=== PATIENT | female | born 1990 | race Caucasian/White ===

== ENCOUNTER 2017-01-08 14:47 | Emergency (ER) | payer OTHER ==
--- NOTE | 2017-01-08 16:01 | ED ---
General Adult HPI - General Chief complaint: Dental/Oral Stated complaint: Mouth Infection Time Seen by Provider: 01/08/17 15:32 Source: patient, RN notes reviewed Mode of arrival: ambulatory Limitations: no limitations - History of Present Illness Initial comments: This is a 26-year-old female presents with left-sided dental pain 3 days. Patient states she has an appointment with an oral surgeon for her wisdom teeth on 01/15/2017 but is in a lot of pain. Patient states she has been taking Motrin with very little relief. Patient states she noticed some left-sided facial swelling yesterday but this has gone down with Motrin. Patient denies any purulent drainage or fever/chills, nausea/vomiting or diarrhea. Patient denies any chance of being stating she is 3 weeks and is not breast feeding. Patient denies any recent shortness breath, chest pain, abdominal pain, nausea/vomiting/diarrhea, back pain, numbness, tingling, hematuria, headache, or visual changes, or any other complaints. - Related Data Previous Rx's Medication Instructions Recorded Ibuprofen [Motrin] 600 mg PO Q6HR PRN #30 tab 12/15/16 Clindamycin [Cleocin] 150 mg PO Q6H 7 Days 01/08/17 HYDROcodone/APAP 5-325MG [[place] 1 tab PO Q6HR #12 tab 01/08/17 5-325] Allergies Allergy/AdvReac Type Severity Reaction Status Date / Time Penicillins Allergy Rash/Hives Verified 01/08/17 16:04 codeine AdvReac Nausea & Verified 01/08/17 16:04 [From Tylenol-Codeine #3] Vomiting Review of Systems ROS Statement: Those systems with pertinent positive or pertinent negative responses have been documented in the HPI. ROS Other: All systems not noted in ROS Statement are negative. Past Medical History Past Medical History: No Reported History, Pneumonia History of Any Multi-Drug Resistant Organisms: None Reported Past Surgical History: Adenoidectomy, Section, Tonsillectomy Additional Past Surgical History / Comment(s): cleft foot Past Anesthesia/Blood Transfusion Reactions: No Reported Reaction Past Psychological History: ADD/ADHD, Anxiety Smoking Status: Current every day smoker Past Alcohol Use History: None Reported Additional Past Alcohol Use History / Comment(s): smoker 13 years 1/2ppd Past Drug Use History: None Reported - Past Family History Mother Family Medical History: No Reported History General Exam - General Exam Comments Initial Comments: General: The patient is awake and alert, in no distress, and does not appear acutely ill. Eye: Pupils are equal, round and reactive to light, extra-ocular movements are intact. No nystagmus. There is normal conjunctiva bilaterally. No signs of icterus. Ears: TMs pink and pearly with intact cone of light bilaterally. Normal external ear canals Mouth and throat: Patient with tenderness to left-sided tooth #17. No purulent drainage or erythema. There are moist mucous membranes and no oral lesions. No external facial swelling. Neck: The neck is supple, there is no tenderness or JVD. Cardiovascular: There is a regular rate and rhythm. No murmur, rub or gallop is appreciated. Respiratory: Lungs are clear to auscultation, respirations are non-labored, breath sounds are equal. No wheezes, stridor, rales, or rhonchi. Musculoskeletal: Normal ROM, no tenderness. Strength 5/5. Sensation intact. Radial pulses equal bilaterally 2+. Neurological: A&O x 3. CN II-XII intact, There are no obvious motor or sensory deficits. Coordination appears grossly intact. Speech is normal. Skin: Skin is warm and dry and no rashes or lesions are noted. Psychiatric: Cooperative, appropriate mood & affect, normal judgment. Limitations: no limitations Course Vital Signs 01/08/17 01/08/17 15:17 16:02 Temperature 98.0 F 97.9 F Pulse Rate 97 90 Respiratory 20 14 Rate Blood Pressure 142/92 131/77 O2 Sat by Pulse 98 98 Oximetry Medical Decision Making - Medical Decision Making Physical exam 6-year-old female presents left-sided dental pain 3 days. On physical exam patient is afebrile in the EC. Patient with tenderness to left- sided tooth #17. No purulent drainage or erythema. I discussed that patient was put on a course of antibiotics and given a short prescription for [place] to help with breakthrough pain. I discussed continuation of Motrin. I discussed return parameters. I discussed that patient needs to follow-up with her dentist and/or her oral surgeon.Discussed that patient should follow up with PCP in one to 2 days or return to the EC for any worsening symptoms or for any further concerns. Patient was receptive to this plan and patient will be discharged home. Disposition Clinical Impression: Pain, dental Disposition: HOME SELF-CARE Condition: Good Instructions: Toothache (ED) Additional Instructions: Please use antibiotics as prescribed. Please use pain medication as prescribed. May use [id number] Tylenol or Motrin for pain. Use warm compresses to the area for pain. Please follow-up with dentist as soon as possible. Please follow up with PCP tomorrow or return to the EC for any worsening symptoms or for any further concerns.[facility] dental plan: [address] [place] [address], . [employer]: Have to pay $50 for x-rays and the rest is covered. [phone]. Prescriptions: Clindamycin [Cleocin] 150 mg PO Q6H 7 Days HYDROcodone/APAP 5-325MG [[place] 5-325] 1 tab PO Q6HR #12 tab Referrals: None,Stated [Primary Care Provider] - 1-2 days Frank Tristan MD [STAFF PHYSICIAN] - 1-2 days Time of Disposition: 16:01
[2017-01-08 16:04] VITALS: BP 131/77; PULSE 90; RESP 14; TEMP 97.9
== END 2017-01-08 16:07 | disposition home or self-care (01) ==
LOC: EC 14:47
DX: O90.89 Other complications of the puerperium, not elsewhere classified (principal); K08.89 Other specified disorders of teeth and supporting structures; O99.335 Smoking (tobacco) complicating the puerperium; F17.200 Nicotine dependence, unspecified, uncomplicated; Z88.0 Allergy status to penicillin
CPT/HCPCS: 99282

== ENCOUNTER 2017-02-18 23:42 | Emergency (ER) | payer OTHER ==
[2017-02-19 00:05] VITALS: RESP 18
[2017-02-19] MEDS ORDERED: ONDANSETRON ODT 4 MG TAB PO STA (00:21)
--- NOTE | 2017-02-19 00:23 | ED ---
Female Urogenital HPI - General Chief complaint: Urogenital Stated complaint: female Time Seen by Provider: 02/18/17 23:52 Source: patient, RN notes reviewed Mode of arrival: ambulatory Limitations: no limitations - History of Present Illness Initial comments: Patient is a 26-year-old female presents emergency room for evaluation of dysuria. Patient states over the past week she's been having frequency in urination. Patient states over the past day she's been having pain and burning on urinating. Patient states every time she urinates feels that she can't get enough out. Patient states having slight abdominal pain. Patient denies vaginal bleeding or discomfort. Patient denies fevers or chills. Patient states she's having nausea but denies vomiting. Patient denies history of kidney stones. Patient denies blood in the urine. Patient denies history of STDs. Last Menstrual Period: 01/27/17 - Related Data Previous Rx's Medication Instructions Recorded Ibuprofen [Motrin] 600 mg PO Q6HR PRN #30 tab 12/15/16 Clindamycin [Cleocin] 150 mg PO Q6H 7 Days 01/08/17 HYDROcodone/APAP 5-325MG [[place] 1 tab PO Q6HR #12 tab 01/08/17 5-325] Phenazopyridine [Pyridium] 200 mg PO TID PRN #5 tablet 02/19/17 Sulfamethox-Tmp 800-160Mg [Bactrim 1 tab PO Q12HR 7 Days 02/19/17 DS 800-160 mg] Allergies Allergy/AdvReac Type Severity Reaction Status Date / Time Penicillins Allergy Rash/Hives Verified 02/18/17 23:47 codeine AdvReac Nausea & Verified 02/18/17 23:47 [From Tylenol-Codeine #3] Vomiting Review of Systems ROS Statement: Those systems with pertinent positive or pertinent negative responses have been documented in the HPI. ROS Other: All systems not noted in ROS Statement are negative. Past Medical History Past Medical History: No Reported History, Pneumonia History of Any Multi-Drug Resistant Organisms: None Reported Past Surgical History: Adenoidectomy, Section, Tonsillectomy Additional Past Surgical History / Comment(s): cleft foot Past Anesthesia/Blood Transfusion Reactions: No Reported Reaction Past Psychological History: ADD/ADHD, Anxiety Smoking Status: Current every day smoker Past Alcohol Use History: None Reported Additional Past Alcohol Use History / Comment(s): smoker 13 years 1/2ppd Past Drug Use History: None Reported - Past Family History Mother Family Medical History: No Reported History General Exam - General Exam Comments Initial Comments: Sitting in exam room, no acute distress. Limitations: no limitations General appearance: alert, in no apparent distress Head exam: Present: atraumatic, normocephalic, normal inspection Eye exam: Present: normal appearance ENT exam: Present: normal exam Neck exam: Present: normal inspection Respiratory exam: Present: normal lung sounds bilaterally. Absent: respiratory distress Cardiovascular Exam: Present: regular rate, normal rhythm, normal heart sounds GI/Abdominal exam: Present: soft, normal bowel sounds. Absent: distended, tenderness, guarding, rebound, rigid Extremities exam: Present: normal inspection Back exam: Present: normal inspection. Absent: CVA tenderness (R), CVA tenderness (L) Neurological exam: Present: alert, oriented X3, CN II-XII intact, normal gait Psychiatric exam: Present: normal affect, normal mood Skin exam: Present: warm, dry, intact, normal color. Absent: rash Course Vital Signs 02/18/17 02/19/17 23:59 01:35 Temperature 97.7 F 97.5 F L Pulse Rate 90 72 Respiratory 18 18 Rate Blood Pressure 131/77 132/78 O2 Sat by Pulse 99 98 Oximetry Medical Decision Making - Medical Decision Making Patient is 26-year-old female presents emergency room for evaluation of dysuria. Urinalysis suspicious for urinary tract infection. Patient be placed on antibiotics and Pyridium. Patient given Rocephin while she was here. Patient states she understands everything that was discussed with her. Return parameters discussed. Case discussed with Dr. Sullivan. - Lab Data Lab Results 02/19/17 02/19/17 Range/Units 00:17 00:17 Urine Color Yellow Urine Appearance Turbid H (Clear) Urine pH 6.0 (5.0-8.0) Ur Specific [place] 1.039 H (1.001-1.035) Urine Protein 3+ H (Negative) Urine Glucose (UA) Negative (Negative) Urine Ketones Trace H (Negative) Urine Blood Large H (Negative) Urine Nitrite Negative (Negative) Urine Bilirubin Negative (Negative) Urine Urobilinogen 2.0 (<2.0) mg/dL Ur Leukocyte Esterase Moderate H (Negative) Urine RBC >182 H (0-5) /hpf Urine WBC 130 H (0-5) /hpf Ur Squamous Epith Cells 68 H (0-4) /hpf Urine Mucus Few H (None) /hpf Urine HCG, Qual Not Detected (Not Detectd) Disposition Clinical Impression: Urinary tract infection Disposition: HOME SELF-CARE Condition: Good Instructions: Urinary Tract Infection in Women (ED) Additional Instructions: Take antibiotics as directed. Take Pyridium as needed for pain. Please follow up with primary care provider in 24-48 hours for reevaluation. If any new symptom arises or symptoms worsen, return to ER as soon as possible. Prescriptions: Sulfamethox-Tmp 800-160Mg [Bactrim DS 800-160 mg] 1 tab PO Q12HR 7 Days Phenazopyridine [Pyridium] 200 mg PO TID PRN #5 tablet PRN Reason: Pain Referrals: None,Stated [Primary Care Provider] - 1-2 days Time of Disposition: 01:11
[2017-02-19 00:41] LABS: Appearance,Urine Turbid (Clear); Bilirubin,Urine Negative (Negative); Glucose,Urine (UA) Negative (Negative); Ketones,Urine Trace (Negative); Leukocyte Esterase,Urine Moderate (Negative); Mucus,Urine Few /hpf; Nitrite,Urine Negative (Negative); Particle Count 24823; Protein,Urine 3+ (Negative); RBC,Urine >182 /hpf (0-5); Specific Gravity,Urine 1.039 (1.001-1.035); Squamous Epithelial Cell,Urine 68 /hpf (0-4); UA Billing (MACRO vs. MICRO) MICRO; WBC,Urine 130 /hpf (0-5)
[2017-02-19] MEDS ORDERED: SULFAMETHOX-TMP 800-160MG 1 EACH TAB PO STA (01:10)
[2017-02-19] MEDS ORDERED: PHENAZOPYRIDINE 100 MG TAB PO STA (01:10)
[2017-02-19] MEDS ORDERED: cefTRIAXone 1,000 MG VIAL (IM USE) IM STA (01:14)
[2017-02-19 01:36] VITALS: BP 132/78; PULSE 72; TEMP 97.5
== END 2017-02-19 01:35 | disposition home or self-care (01) ==
LOC: EC 23:42
DX: N39.0 Urinary tract infection, site not specified (principal); F17.200 Nicotine dependence, unspecified, uncomplicated; Z88.0 Allergy status to penicillin; Z88.5 Allergy status to narcotic agent
CPT/HCPCS: 81001; 81025; 99283; 96372; J0696

== ENCOUNTER → 2017-03-04 | Outpatient (CLI) | payer OTHER ==
[2017-03-04 11:03] LABS: Anisocytosis Slight; Appearance,Urine Clear (Clear); Basophils % (A) 0 %; Bilirubin,Urine Negative (Negative); CH 27.8; CHCM 32.5; Eosinophils # (A) 0.3 k/uL (0-0.7); Eosinophils % (A) 3 %; Glucose,Urine (UA) Negative (Negative); HCT 40.1 % (34.0-46.0); HDW 2.55; HGB 13.1 gm/dL (11.4-16.0); Ketones,Urine Negative (Negative); Leukocyte Esterase,Urine Negative (Negative); Luc # (Auto) 0.09; Luc % (Auto) 1; Lymphocytes # (A) 2.1 k/uL (1.0-4.8); Lymphocytes % (A) 22 %; MCHC 32.7 g/dL (31.0-37.0); MCV 85.6 fL (80.0-100.0); Mean Platelet Volume 7.6; Monocytes # (A) 0.3 k/uL (0-1.0); Monocytes % (A) 3 %; Neutrophils # (A) 6.5 k/uL (1.3-7.7); Neutrophils % (A) 70 %; Nitrite,Urine Negative (Negative); Protein,Urine Trace (Negative); RBC 4.69 m/uL (3.80-5.40); RDW 16.7 % (11.5-15.5); Specific Gravity,Urine 1.026 (1.001-1.035); UA Billing (MACRO vs. MICRO) CHEM; Urobilinogen,Urine <2.0 mg/dL (<2.0); WBC 9.3 k/uL (3.8-10.6); WBC (Perox) 9.95
== END | disposition home or self-care (01) ==
LOC: LABPAT 10:36
PROVIDERS: ATTEND Obstetrics & Gynecology
DX: Z01.812 Encounter for preprocedural laboratory examination (principal); N39.0 Urinary tract infection, site not specified
CPT/HCPCS: 81003; 85025; 87086

== ENCOUNTER → 2017-03-07 | Outpatient (CLI) | payer OTHER | END | disposition home or self-care (01) | LOC: LABPAT 15:54 | PROVIDERS: ATTEND Obstetrics & Gynecology | DX: Z53.9 Procedure and treatment not carried out, unspecified reason (principal) ==

== ENCOUNTER 2017-03-08 06:20 | Day surgery (SDC) | payer OTHER ==
[2017-03-06 16:18] VITALS: BMI 30.2
[~2017-03-08 06:20] MED LIST: DEXAMETHASONE SOD PHOSPHATE 10 MG/ML 1 ML VIAL IV ONE; HEPARIN SODIUM,PORCINE 5,000 UNIT/ML 1 ML VIAL SQ ONE; LIDOCAINE 1% 20 ML VIAL (10MG/ML) FOR IV START INTRADERMA PRN; SCOPOLAMINE 1.5MG/72HR PATCH TRANSDERM ONE; ceFAZolin 2 GM in SODIUM CHLORIDE 0.9% 100 ML IVPB ONE; fentaNYL (PF) 50 MCG/ML 2 ML AMP IV PRN
[2017-03-08] MEDS: LACTATED RINGERS 1,000 ML IV SCH ×2 (07:12→12:49)
[2017-03-08] MEDS ORDERED: LIDOCAINE 1% 20 ML VIAL (10MG/ML) FOR IV START INTRADERMA ONE (07:12)
[2017-03-08] MEDS: ONDANSETRON 4 MG/2 ML VIAL IVP ONE ×2 (07:19→14:24)
[2017-03-08] MEDS ORDERED: BUPIVACAINE (PF) 0.25% 30 ML VIAL SQ ONE (07:20)
[2017-03-08] MEDS ORDERED: BUPIVACAIN-EPI 0.25%-1:200,000 30 ML VIAL SQ ONE ×3 (07:20→09:55)
--- NOTE | 2017-03-08 07:39 | P.HPOB ---
History of Present Illness H&P Date: 03/08/17 Chief Complaint: Family planning Akosua is a 26-year-old female who is completed her family planning and requests permanent sterilization. She is scheduled for a left scopic tubal occlusion with Filshie clips. Risks/benefits/alternatives were discussed with patient in detail and all questions are answered for her prior to proceeding to the operating room. She is also scheduled to have a robotic hernia repair at the same time. No other problems or concerns at this time and all questions are answered prior to proceeding to the operating room. Risks benefits alternatives were reviewed and she is aware that there is a failure rate one small but on occasion. following a tubal. On physical exam vital signs are stable and afebrile. Heart regular, lungs clear, extremities without pain. Abdomen is soft positive bowel sounds are noted. Assessment family planning. Plan left scopic tubal occlusion in coordination with robotic hernia repair done by general surgery. Past Medical History Past Medical History: No Reported History, Pneumonia Additional Past Medical History / Comment(s): recent tx UTI History of Any Multi-Drug Resistant Organisms: None Reported Past Surgical History: Adenoidectomy, Section, Tonsillectomy Additional Past Surgical History / Comment(s): cleft foot Past Anesthesia/Blood Transfusion Reactions: No Reported Reaction Past Psychological History: ADD/ADHD, Anxiety Smoking Status: Current every day smoker Past Alcohol Use History: None Reported Additional Past Alcohol Use History / Comment(s): smoker 13 years 1/2ppd Past Drug Use History: None Reported - Past Family History Mother Family Medical History: COPD, Osteoarthritis (OA) Additional Family Medical History / Comment(s): emphysema Father Family Medical History: No Reported History Medications and Allergies Home Medications Medication Instructions Recorded Confirmed Type Acetaminophen Tab [Tylenol Tab] 650 mg PO Q4H PRN 03/06/17 03/08/17 History Ibuprofen [Motrin] 200 - 400 mg PO Q6HR PRN 03/06/17 03/08/17 History Allergies Allergy/AdvReac Type Severity Reaction Status Date / Time Penicillins Allergy Rash/Hives Verified 03/08/17 06:53 codeine AdvReac Nausea & Verified 03/08/17 06:53 [From Tylenol-Codeine #3] Vomiting tramadol AdvReac Nausea & Verified 03/08/17 06:53 Vomiting Exam Osteopathic Statement: *. No significant issues noted on an osteopathic structural exam other than those noted in the History and Physical/Consult. - Vital Signs Vital signs: Vital Signs Temp Pulse Resp BP Pulse Ox 03/08/17 06:55 97.9 F 77 16 108/58 98
[2017-03-08] MEDS ORDERED: NEOSTIGMINE 1 MG/ML 10 ML VIAL ONE (07:45)
[2017-03-08] MEDS ORDERED: diphenhydrAMINE 50 MG/ML 1 ML VIAL ONE (07:45)
[2017-03-08] MEDS ORDERED: LABETALOL 5 MG/ML VIAL MDV ONE (07:45)
[2017-03-08] MEDS ORDERED: ESMOLOL 100 MG/10 ML VIAL ONE (07:45)
[2017-03-08] MEDS ORDERED: GLYCOPYRROLATE 0.2 MG/ML 2 ML VIAL ONE (07:45)
[2017-03-08] MEDS ORDERED: MIDAZOLAM 2 MG/2 ML VIAL ONE (07:45)
[2017-03-08] MEDS ORDERED: fentaNYL (PF) 50 MCG/ML 2 ML AMP ONE (07:45)
[2017-03-08] MEDS ORDERED: PROPOFOL 10 MG/ML 20 ML VIAL IV ONE (07:45)
[2017-03-08] MEDS ORDERED: HYDROmorphone (PF) 1 MG/ML ONE (07:45)
[2017-03-08] MEDS ORDERED: ROCURONIUM BROMIDE 10 MG/ML 10 ML VIAL IV ONE (07:45)
[2017-03-08] MEDS ORDERED: LIDOCAINE 1% INJ 10MG/ML (20 ML MDV) ONE (07:45)
[2017-03-08] MEDS ORDERED: SUCCINYLCHOLINE CHLORIDE 100 MG/5 ML SYR IV ONE (07:45)
[2017-03-08] MEDS ORDERED: CLINDAMYCIN 600 MG in DEXTROSE 5% IN WATER 50 ML IVPB STA ×2 (07:45)
--- NOTE | 2017-03-08 08:25 | P.OP ---
Date of Procedure: 03/08/17 Preoperative Diagnosis: Family planning Postoperative Diagnosis: Same Procedure(s) Performed: Laparoscopic tubal occlusion with Filshie clips Anesthesia: KENDALL Surgeon: Tor Don Estimated Blood Loss (ml): 1 Urine output (ml): 30 Pathology: none sent Condition: stable Operative Findings: no Gross pathology Description of Procedure: Patient was taken to the operating suite where a general anesthetic was found be adequate. She was prepped and draped in normal sterile fashion and placed in dorsal lithotomy position. Initially a red Taya cath was used to drain the bladder urine and a sample was sent for urinalysis. Once this was accomplished a speculum was inserted in the vagina into lip of the cervix was identified grasped with a single-tooth tenaculum and a uterine manipulator was inserted without difficulty. Once this was accomplished speculum was removed catheter was removed and gloves were changed. Attention was then turned to the abdominal portion procedure Dr. Jacobson [place] the ports as she is doing a hernia repair at the same time. Once ports were placed patient was placed in a steep steep Trendelenburg position and I assumed control the camera. Fallopian tubes were identified normal tubes and ovaries were visualized as well as a normal uterus. While elevating the uterus first the right fallopian tube than the left fallopian tube had a Filshie clip applied between 2 and 3 cm from uterine cornu. Once clips were applied there was no bleeding noted from the mesosalpinx therefore instruments from my standpoint were removed and Dr. Jacobson assumed control of the case. Please see her dictation regarding all other information for this case
[2017-03-08] MEDS ORDERED: LACTATED RINGERS 1,000 ML IV ONE (09:59)
[2017-03-08 10:31] VITALS: TEMP 96.9
[2017-03-08] MEDS ORDERED: HYDROmorphone 1 MG/ML 1 ML SYRINGE IVP ONE (11:18)
[2017-03-08] MEDS ORDERED: KETOROLAC 30 MG/ML 1 ML VIAL IVP ONE (11:34)
[2017-03-08 11:55] VITALS: RESP 16
[2017-03-08] MEDS ORDERED: HYDROcodone/APAP 5-325MG 1 EACH TAB PO ONE (12:47)
[2017-03-08] MEDS ORDERED: traMADol 50 MG TAB PO ONE (14:24)
[2017-03-08 14:57] VITALS: BP 122/73; PULSE 71
--- NOTE | 2017-03-11 10:11 | P.OP ---
Date of Procedure: 03/08/17 Preoperative Diagnosis: Ventral hernia Obesity BMI 30.3 Chronic active smoker Postoperative Diagnosis: Same Procedure(s) Performed: Robotic assist laparoscopic multiple ventral hernia defects repair with mesh Implants: Ventralight ST 6x 8 inch mesh Anesthesia: KENDALL local Surgeon: Alva Jacobson Estimated Blood Loss (ml): 10 Pathology: none sent Condition: stable Disposition: PACU Indications for Procedure: 26 years old female with obesity BMI 30.3 and chronic active smoker presents with a hernia along the anterior abdominal wall around the umbilicus area. Informed consent obtained from the patient after explaining the risks benefits and potential complications including bleeding, infection, inadvertent bowel injury and possibility of converting into open. Patient elected to undergo robotic-assisted laparoscopic ventral hernia repair with mesh with bilateral tubal ligation by Dr. Don at the same setting Operative Findings: 3 hernia defects containing preperitoneal fat located along the midline- one at the umbilicus and 2 below it. A 6x8 inch mesh was placed in underlay fashion to close all three hernia defects. Bilateral tubal ligation performed by Dr. Don Description of Procedure: The patient was brought to the operating room and placed in supine position. General anesthesia with endotracheal intubation was performed as per anesthesia team. The right arm was tucked against the body and a footboard was applied. Chlorhexidine was used to prep the skin followed by application of sterile drapes and Ioban dressing. A timeout was performed to verify correct patient and correct procedure. Patient was confirmed to receive perioperative IV antibiotics , bilateral SCDs and 5000 units of subcutaneous heparin for VTE prophylaxis. A 5 mm skin incision was made along the left midaxillary line and a Veress needle was inserted to establish the pneumoperitoneum to a pressure of 15 mm of Hg. Using a 5 mm 30 laparoscope the peritoneal cavity was entered using the Optiview technique. Additional 12 mm trocar was placed in the mid axillary line in the left mid abdomen and robotic 8 mm trocar in the left lower abdomen. The 5 mm trocar was upsized to [address] Don performed tubal ligation. Please see his op notes for details. The [employer] robot was then docked. The 30 robotic camera was used. A robotic prograsp and monopolar scissors were inserted through 8 mm robotic trocars The umbilical hernia defect contained preperitoneal fat and omentum which were reduced using gentle traction and countertraction method.The defect measured 2x2 cm . There were two additional hernia defects in the lower midline measuring 1x 1.5 cm and 2 x 1.5 cm . A 6 x [address] mesh was tagged in the center using a prolene stitich and was rolled and introduced to the abdominal cavity via the 12 mm trocar. All three hernia defects were closed primarily with running sutures using O- V lock by taking 1 cm bite on the fascia on either side of the defect. A Ashish Shannan device was inserted through the middle and the stay suture on the mesh was grasped to elevate the mesh against the anterior abdominal wall. The mesh was circumferentially sutured to the fascia of the anterior abdominal wall using 2-0 V lock without any folds or kinks. The mesh was placed in underlay fashion and covered all three defects with 2 cm overlap. The robot was then undocked. Laparoscopic 30 degrees camera was reinserted. All trocar sites were examined. No evidence of bleeding. The 12 mm trocar site was closed using two transfascial sutures of 0 Vicryl which were placed using a Ashish Shannan device. The pneumoperitoneum was evacuated and all the skin incisions were closed using 4-0 Monocryl followed by Dermabond skin glue. Telfa and Tegaderm dressings were applied. The sponge, instrument and needle count were correct x2. Abdominal binder was applied. The patient was extubated and taken to post anesthesia care unit in stable condition.
== END 2017-03-08 15:36 | disposition home or self-care (01) ==
LOC: OR 06:20
PROVIDERS: ATTEND Obstetrics & Gynecology
DX: K43.9 Ventral hernia without obstruction or gangrene (principal); Z30.2 Encounter for sterilization; Z68.30 Body mass index [BMI] 30.0-30.9, adult; E66.8 Other obesity; F17.200 Nicotine dependence, unspecified, uncomplicated; Z88.5 Allergy status to narcotic agent; Z88.0 Allergy status to penicillin
CPT/HCPCS: 81025; 86900; 86901; 86850; 87086; 58671; 49652; C1781; J2250; J1200; J1644; J1100; J2710; J2405; J2001; J3010; J1885; J1170; J0330; J2704

== ENCOUNTER 2017-03-23 21:53 | Emergency (ER) | payer OTHER ==
[2017-03-23 22:07] VITALS: RESP 18
[2017-03-23] MEDS ORDERED: SODIUM CHLORIDE 0.9% 1,000 ML IV ONE (23:25)
[2017-03-23] MEDS ORDERED: HYDROcodone/APAP 5-325MG 1 EACH TAB PO STA (23:30)
--- NOTE | 2017-03-23 23:32 | ED ---
Abdominal Pain HPI - General Chief Complaint: Abdominal Pain Stated Complaint: Post Opt /Abd Pain Time Seen by Provider: 03/23/17 22:44 Source: patient, RN notes reviewed Mode of arrival: ambulatory Limitations: no limitations - History of Present Illness Initial Comments: Patient is a 26-year-old female presents to the emergency room for evaluation of abdominal pain. Patient states that she had a tubal ligation and hernia repair about [address] Jacobson. Patient states that she began feeling better and about 2 days ago she began developing left lower quadrant burning pain. Patient states she's randomly sitting down and the pain began. Patient states the pain has been getting worse since it began. Patient states the pain is relieved while laying down. Patient denies nausea or vomiting. Patient denies diarrhea or constipation. Patient denies headache or dizziness. Patient states having constant burning pain. Patient denies any other surgical history besides 3 sections. Patient's chest pain or burning during urination, trouble trouble urinating or blood in urine. - Related Data Home Medications Medication Instructions Recorded Confirmed Acetaminophen Tab [Tylenol Tab] 650 mg PO Q4H PRN 03/06/17 03/23/17 Ibuprofen [Motrin] 200 - 400 mg PO Q6HR PRN 03/06/17 03/23/17 Previous Rx's Medication Instructions Recorded HYDROcodone/APAP 5-325MG [[place] 1 tab PO Q6HR PRN #12 tab 03/24/17 5-325] Allergies Allergy/AdvReac Type Severity Reaction Status Date / Time Penicillins Allergy Severe Dyspnea Verified 03/23/17 22:07 codeine AdvReac Nausea & Verified 03/23/17 22:07 [From Tylenol-Codeine #3] Vomiting tramadol AdvReac Nausea & Verified 03/23/17 22:07 Vomiting Review of Systems ROS Statement: Those systems with pertinent positive or pertinent negative responses have been documented in the HPI. ROS Other: All systems not noted in ROS Statement are negative. Past Medical History Past Medical History: Pneumonia History of Any Multi-Drug Resistant Organisms: None Reported Past Surgical History: Adenoidectomy, Section, Hernia Repair, Tonsillectomy, Tubal Ligation Additional Past Surgical History / Comment(s): cleft foot Past Anesthesia/Blood Transfusion Reactions: No Reported Reaction Past Psychological History: ADD/ADHD, Anxiety Smoking Status: Current every day smoker Past Alcohol Use History: None Reported Additional Past Alcohol Use History / Comment(s): smoker 13 years 1/2ppd Past Drug Use History: None Reported - Past Family History Mother Family Medical History: COPD, Osteoarthritis (OA) Father Family Medical History: No Reported History General Exam - General Exam Comments Initial Comments: sitting in exam room, no acute distress. Limitations: no limitations General appearance: alert, in no apparent distress Head exam: Present: atraumatic, normocephalic, normal inspection Eye exam: Present: normal appearance ENT exam: Present: normal exam Neck exam: Present: normal inspection Respiratory exam: Present: normal lung sounds bilaterally. Absent: respiratory distress Cardiovascular Exam: Present: regular rate, normal rhythm, normal heart sounds GI/Abdominal exam: Present: soft, tenderness ( Left lower quadrant), normal bowel sounds. Absent: distended, guarding, rebound, rigid Extremities exam: Present: normal inspection Back exam: Present: normal inspection Neurological exam: Present: alert, oriented X3, CN II-XII intact, normal gait Psychiatric exam: Present: normal affect, normal mood Skin exam: Present: warm, dry, intact, normal color. Absent: rash Course Vital Signs 03/23/17 03/24/17 22:04 02:32 Temperature 97.2 F L 97.7 F Pulse Rate 103 H 78 Respiratory 18 18 Rate Blood Pressure 128/81 138/78 O2 Sat by Pulse 98 99 Oximetry Medical Decision Making - Medical Decision Making patient is a 26-year-old female presents to emergency for violation of abdominal pain. Labs returning findings. Ultrasound shows no sign of abscesses or ovarian torsion. Advised patient to follow-up with her surgeon on Saturday. Patient states she understands everything that was discussed with her. Return parameters discussed. Case discussed with Dr. Zhao. - Lab Data Result diagrams: 03/23/17 23:11 03/23/17 23:11 Lab Results 03/23/17 03/23/17 03/23/17 Range/Units 23:11 23:11 23:30 WBC 10.6 (3.8-10.6) k/uL RBC 4.46 (3.80-5.40) m/uL Hgb 12.8 (11.4-16.0) gm/dL Hct 37.7 (34.0-46.0) % MCV 84.5 (80.0-100.0) fL MCH 28.8 (25.0-35.0) pg MCHC 34.0 (31.0-37.0) g/dL RDW 16.1 H (11.5-15.5) % Plt Count 289 (150-450) k/uL Neutrophils % 56 % Lymphocytes % 36 % Monocytes % 3 % Eosinophils % 2 % Basophils % 1 % Neutrophils # 6.0 (1.3-7.7) k/uL Lymphocytes # 3.9 (1.0-4.8) k/uL Monocytes # 0.3 (0-1.0) k/uL Eosinophils # 0.3 (0-0.7) k/uL Basophils # 0.1 (0-0.2) k/uL Anisocytosis Slight Sodium 143 (137-145) mmol/L Potassium 4.0 (3.5-5.1) mmol/L Chloride 107 (98-107) mmol/L Carbon Dioxide 24 (22-30) mmol/L Anion Gap 12 mmol/L BUN 16 (7-17) mg/dL Creatinine 0.70 (0.52-1.04) mg/dL Est GFR (MDRD) Af Amer >60 (>60 ml/min/1.73 sqM) Est GFR (MDRD) Non-Af >60 (>60 ml/min/1.73 sqM) Glucose 100 H (74-99) mg/dL Calcium 9.8 (8.4-10.2) mg/dL Total Bilirubin 0.2 (0.2-1.3) mg/dL AST 18 (14-36) U/L ALT 55 H (9-52) U/L Alkaline Phosphatase 143 H (38-126) U/L Total Protein 6.9 (6.3-8.2) g/dL Albumin 4.4 (3.5-5.0) g/dL Amylase 38 (30-110) U/L Lipase 90 (23-300) U/L Urine Color Yellow Urine Appearance Cloudy H (Clear) Urine pH 6.0 (5.0-8.0) Ur Specific [place] 1.015 (1.001-1.035) Urine Protein Negative (Negative) Urine Glucose (UA) Negative (Negative) Urine Ketones Negative (Negative) Urine Blood Negative (Negative) Urine Nitrite Negative (Negative) Urine Bilirubin Negative (Negative) Urine Urobilinogen <2.0 (<2.0) mg/dL Ur Leukocyte Esterase Trace H (Negative) Urine RBC 1 (0-5) /hpf Urine WBC 6 H (0-5) /hpf Ur Squamous Epith Cells 13 H (0-4) /hpf Urine Bacteria Rare H (None) /hpf Urine Mucus Rare H (None) /hpf - Radiology Data Radiology results: report reviewed, image reviewed Disposition Clinical Impression: Abdominal pain Disposition: HOME SELF-CARE Condition: Good Instructions: Abdominal Pain (ED) Additional Instructions: Take pain medications as needed. Please follow up with surgeon on Saturday. If any new symptom arises or symptoms worsen, return to ER as soon as possible. Prescriptions: HYDROcodone/APAP 5-325MG [[place] 5-325] 1 tab PO Q6HR PRN #12 tab PRN Reason: Pain Referrals: Alva Jacobson MD [STAFF PHYSICIAN] - 1-2 days Time of Disposition: 03:14
[2017-03-23 23:37] LABS: Anisocytosis Slight; Basophils # (A) 0.1 k/uL (0-0.2); Basophils % (A) 1 %; CH 28.8; CHCM 34.2; Eosinophils # (A) 0.3 k/uL (0-0.7); Eosinophils % (A) 2 %; HCT 37.7 % (34.0-46.0); HDW 2.64; HGB 12.8 gm/dL (11.4-16.0); Luc # (Auto) 0.15; Luc % (Auto) 1; Lymphocytes # (A) 3.9 k/uL (1.0-4.8); Lymphocytes % (A) 36 %; MCH 28.8 pg (25.0-35.0); MCV 84.5 fL (80.0-100.0); Mean Platelet Volume 7.2; Monocytes # (A) 0.3 k/uL (0-1.0); Monocytes % (A) 3 %; Neutrophils % (A) 56 %; RBC 4.46 m/uL (3.80-5.40); RDW 16.1 % (11.5-15.5); WBC 10.6 k/uL (3.8-10.6); WBC (Perox) 10.96
[2017-03-23 23:39] LABS: ALT 55 U/L (9-52); AST 18 U/L (14-36); Alkaline Phosphatase 143 U/L (38-126); Amylase 38 U/L (30-110); Anion Gap 12 mmol/L; Blood Urea Nitrogen 16 mg/dL (7-17); Calcium 9.8 mg/dL (8.4-10.2); Carbon Dioxide 24 mmol/L (22-30); Chloride 107 mmol/L (98-107); Glucose 100 mg/dL (74-99); Non-African American GFR(MDRD) >60 (>60 ml/min/1.73 sqM); Sodium 143 mmol/L (137-145); Total Bilirubin 0.2 mg/dL (0.2-1.3); Total Protein 6.9 g/dL (6.3-8.2)
[2017-03-24] LABS: Appearance,Urine Cloudy (Clear); Bacteria,Urine Rare /hpf; Bilirubin,Urine Negative (Negative); Glucose,Urine (UA) Negative (Negative); Ketones,Urine Negative (Negative); Leukocyte Esterase,Urine Trace (Negative); Mucus,Urine Rare /hpf; Nitrite,Urine Negative (Negative); Particle Count 5293; Protein,Urine Negative (Negative); RBC,Urine 1 /hpf (0-5); Specific Gravity,Urine 1.015 (1.001-1.035); Squamous Epithelial Cell,Urine 13 /hpf (0-4); UA Billing (MACRO vs. MICRO) MICRO; Urobilinogen,Urine <2.0 mg/dL (<2.0); WBC,Urine 6 /hpf (0-5)
[2017-03-24] MEDS ORDERED: HYDROmorphone 1 MG/ML 1 ML SYRINGE IVP STA (00:27)
--- NOTE | 2017-03-24 00:39 | XR ---
EXAM: 2 AP upright views of the abdomen. INDICATION: Pain. COMPARISON: None. FINDINGS: Single frontal view of the abdomen demonstrates a normal bowel gas pattern. No evidence of organomegaly, abnormal calcifications or obvious soft tissue masses. Tubal ligation clips project over the pelvis. The osseous structures are intact. IMPRESSION: No radiographic evidence for acute abnormality.
[2017-03-24 02:35] VITALS: BP 138/78; PULSE 78; TEMP 97.7
--- NOTE | 2017-03-24 02:59 | US ---
EXAM: US PELVIC/ENDOVAG INDICATION: 26-year-old female with pain. TECHNIQUE: Real-time sonographic evaluation of the pelvis is performed in transverse and longitudinal projections using transvaginal technique. COMPARISON: None. FINDINGS: The uterus is normal in size, it measures 10.1 x 6.6 x 5.5 centimeters. The endometrium is normal in thickness measuring 1.4 cm. The right ovary measures 4.2 x 2.7 x 2.7 cm and the left ovary measure 3. 7 x 2.1 x 2.9 cm. 2.0 cm complex right ovarian cyst is most likely an involuting follicular cyst. Blood flow to both ovaries is within normal limits. Moderate amount of physiologic fluid is present. IMPRESSION: 1. 2.0 cm complex right ovarian cyst is most likely involuting follicle or cyst. 2. Moderate physiologic free fluid present in the pelvis. 3. No evidence of ovarian torsion.
== END 2017-03-24 03:24 | disposition home or self-care (01) ==
LOC: EC 21:53
DX: R10.32 Left lower quadrant pain (principal); F17.200 Nicotine dependence, unspecified, uncomplicated; Z88.0 Allergy status to penicillin; Z88.5 Allergy status to narcotic agent; Z88.6 Allergy status to analgesic agent; Z98.51 Tubal ligation status; Z98.890 Other specified postprocedural states
CPT/HCPCS: 36415; 80053; 82150; 83690; 85025; 81001; 74000; 93975; 76830; 99284; 96374; 96361; J1170

== ENCOUNTER 2017-08-26 17:22 | Emergency (ER) | payer OTHER ==
[2017-08-26] MEDS ORDERED: HYDROmorphone 0.5 MG/0.5 ML SYRINGE IVP STA (17:23)
[2017-08-26] MEDS ORDERED: RX INFO: IV CONTRAST WAS GIVEN 1 EACH MISC MISCELLANE PRN (17:23)
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
[2017-08-26 18:19] VITALS: RESP 18
[2017-08-26 18:25] LABS: Basophils % (A) 0 %; CH 29.6; CHCM 34.1; Eosinophils # (A) 0.1 k/uL (0-0.7); Eosinophils % (A) 1 %; HDW 2.64; HGB 14.1 gm/dL (11.4-16.0); Luc # (Auto) 0.13; Luc % (Auto) 1; Lymphocytes # (A) 1.9 k/uL (1.0-4.8); Lymphocytes % (A) 20 %; MCH 29.8 pg (25.0-35.0); MCHC 34.2 g/dL (31.0-37.0); MCV 87.1 fL (80.0-100.0); Mean Platelet Volume 7.9; Monocytes # (A) 0.4 k/uL (0-1.0); Monocytes % (A) 4 %; Neutrophils # (A) 6.8 k/uL (1.3-7.7); Neutrophils % (A) 73 %; RBC 4.71 m/uL (3.80-5.40); RDW 13.3 % (11.5-15.5); WBC 9.4 k/uL (3.8-10.6); WBC (Perox) 8.98
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
[2017-08-26 18:31] LABS: INR 1.1 (<1.2); Partial Thromboplastin Time 26.5 sec (22.0-30.0); Prothrombin Time 10.7 sec (9.0-12.0)
[2017-08-26 18:36] LABS: ALT 56 U/L (9-52); AST 19 U/L (14-36); Alcohol <10 mg/dL; Alkaline Phosphatase 98 U/L (38-126); Amylase <30 U/L (30-110); Anion Gap 12 mmol/L; Blood Urea Nitrogen 19 mg/dL (7-17); Calcium 9.7 mg/dL (8.4-10.2); Carbon Dioxide 24 mmol/L (22-30); Chloride 105 mmol/L (98-107); Glucose 109 mg/dL (74-99); Non-African American GFR(MDRD) >60 (>60 ml/min/1.73 sqM); Potassium 3.6 mmol/L (3.5-5.1); Sodium 141 mmol/L (137-145); Total Bilirubin 0.5 mg/dL (0.2-1.3); Total Protein 7.5 g/dL (6.3-8.2)
[2017-08-26 18:38] LABS: Creatine Kinase 39 U/L (30-135)
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
[2017-08-26 18:49] LABS: Creatine Kinase MB 0.3 ng/mL (0.0-2.4); Troponin I <0.012 ng/mL (0.000-0.034)
[2017-08-26] MEDS ORDERED: KETOROLAC 30 MG/ML 1 ML VIAL IVP STA (19:06)
[2017-08-26] MEDS ORDERED: SODIUM CHLORIDE 0.9% 1,000 ML IV ONE (19:06)
[2017-08-26 19:40] LABS: Appearance,Urine Clear (Clear); Bacteria,Urine Rare /hpf; Bilirubin,Urine Negative (Negative); Glucose,Urine (UA) Negative (Negative); Ketones,Urine Negative (Negative); Leukocyte Esterase,Urine Negative (Negative); Mucus,Urine Rare /hpf; Nitrite,Urine Negative (Negative); PH, Urine 6.5 (5.0-8.0); Particle Count 6146; Protein,Urine 1+ (Negative); RBC,Urine 4 /hpf (0-5); Squamous Epithelial Cell,Urine 12 /hpf (0-4); UA Billing (MACRO vs. MICRO) MICRO; Urobilinogen,Urine <2.0 mg/dL (<2.0); WBC,Urine 3 /hpf (0-5)
[2017-08-26 19:49] LABS: Specific Gravity,Urine >1.050 (1.001-1.035)
[2017-08-26] MEDS ORDERED: HYDROcodone/APAP 5-325MG 1 EACH TAB PO STA (20:25)
[2017-08-26 20:44] VITALS: BP 132/67; PULSE 104; TEMP 98.4
== END 2017-08-26 20:43 | disposition home or self-care (01) ==
LOC: EC 17:22
DX: S70.02XA Contusion of left hip, initial encounter (principal); S09.90XA Unspecified injury of head, initial encounter; R00.0 Tachycardia, unspecified; K08.89 Other specified disorders of teeth and supporting structures; M54.9 Dorsalgia, unspecified; M54.2 Cervicalgia; R10.9 Unspecified abdominal pain; F17.200 Nicotine dependence, unspecified, uncomplicated; Z88.0 Allergy status to penicillin; Z88.5 Allergy status to narcotic agent; V49.40XA Driver injured in collision with unspecified motor vehicles in traffic accident, initial encounter; Y92.410 Unspecified street and highway as the place of occurrence of the external cause
CPT/HCPCS: 36415; 93005; 86900; 86901; 80053; 82150; 82550; 82553; 83690; 84484; 85025; 85610; 85730; 86850; 81001; 81025; 80306; 80320; 71010; 72170; 72125; 70450; 71260; 74177; 99291; 96374; 96375; 96361; J1885; Q9967; J1170

== ENCOUNTER 2017-12-13 05:13 | Emergency (ER) | payer OTHER ==
[2017-12-13 06:27] LABS: Basophils % (A) 0 %; Eosinophils # (A) 0.2 k/uL (0-0.7); Eosinophils % (A) 1 %; HGB 13.6 gm/dL (11.4-16.0); Lymphocytes # (A) 2.2 k/uL (1.0-4.8); Lymphocytes % (A) 15 %; MCH 28.9 pg (25.0-35.0); MCHC 32.3 g/dL (31.0-37.0); MCV 89.6 fL (80.0-100.0); Mean Platelet Volume 7.9; Monocytes # (A) 0.4 k/uL (0-1.0); Monocytes % (A) 3 %; Neutrophils # (A) 11.4 k/uL (1.3-7.7); Neutrophils % (A) 80 %; Platelet Count 312 k/uL (150-450); RBC 4.68 m/uL (3.80-5.40); RDW 13.6 % (11.5-15.5); WBC 14.3 k/uL (3.8-10.6)
[2017-12-13 06:40] LABS: Anion Gap 11 mmol/L; Blood Urea Nitrogen 13 mg/dL (7-17); Calcium 9.4 mg/dL (8.4-10.2); Carbon Dioxide 28 mmol/L (22-30); Chloride 104 mmol/L (98-107); Glucose 94 mg/dL (74-99); Potassium 3.5 mmol/L (3.5-5.1); Sodium 143 mmol/L (137-145)
[2017-12-13 06:48] LABS: Appearance,Urine Cloudy (Clear); Bacteria,Urine Many /hpf; Bilirubin,Urine Negative (Negative); Blood,Urine Negative (Negative); Color,Urine Yellow; Glucose,Urine (UA) Negative (Negative); Ketones,Urine Negative (Negative); Leukocyte Esterase,Urine Moderate (Negative); Mucus,Urine Many /hpf; Nitrite,Urine Negative (Negative); PH, Urine 6.5 (5.0-8.0); Protein,Urine 1+ (Negative); RBC,Urine 3 /hpf (0-5); Specific Gravity,Urine 1.025 (1.001-1.035); Squamous Epithelial Cell,Urine 92 /hpf (0-4); WBC,Urine 25 /hpf (0-5)
[2017-12-13] MEDS ORDERED: SULFAMETHOX-TMP 800-160MG 1 EACH TAB PO STA (07:21)
--- NOTE | 2017-12-13 07:24 | ED ---
Skin/Abscess/FB HPI - General Chief complaint: Skin/Abscess/Foreign Body Stated complaint: back pain Time Seen by Provider: 12/13/17 05:33 Source: patient Mode of arrival: ambulatory Limitations: no limitations - History of Present Illness Initial comments: This patient is a 27-year-old woman who presents to be evaluated for a rash. She states that she noticed about 2 days ago that she was starting to have a number of red lesions. She states that some of them seem to be pus filled and she tried to rupture them. Patient also admits to recent use of methamphetamine. She is denying systemic symptoms, including no fever or chills , palpitations, chest pain or shortness of breath. MD complaint: rash Onset/Timin -: days(s) Tetanus Up to Date: yes Location: generalized Severity: moderate Consistency: constant Improves with: none Worsens with: none Context: other Associated symptoms: denies other symptoms - Related Data Previous Rx's Medication Instructions Recorded HYDROcodone/APAP 5-325MG [[place] 1 tab PO Q6HR PRN #12 tab 08/26/17 5-325] Ibuprofen [Motrin] 600 mg PO Q8HR PRN #24 tab 08/26/17 Mupirocin 2% Oint [Bactroban 2% 1 applic TOPICAL TID #15 gm 12/13/17 Oint] Sulfamethox-Tmp 800-160Mg [Bactrim 2 each PO Q12HR #28 tab 12/13/17 Ds] Allergies Allergy/AdvReac Type Severity Reaction Status Date / Time Penicillins Allergy Severe Dyspnea Verified 12/13/17 05:19 codeine AdvReac Nausea & Verified 12/13/17 05:19 [From Tylenol-Codeine #3] Vomiting tramadol AdvReac Nausea & Verified 12/13/17 05:19 Vomiting Review of Systems ROS Statement: Those systems with pertinent positive or pertinent negative responses have been documented in the HPI. ROS Other: All systems not noted in ROS Statement are negative. Constitutional: Denies: fever, chills Respiratory: Denies: cough, dyspnea Cardiovascular: Denies: chest pain, palpitations, edema, syncope Gastrointestinal: Denies: abdominal pain, vomiting Genitourinary: Denies: dysuria, hematuria Skin: Reports: as per HPI, rash Neurological: Denies: headache, weakness, numbness Past Medical History Past Medical History: Pneumonia, Seizure Disorder History of Any Multi-Drug Resistant Organisms: None Reported Past Surgical History: Adenoidectomy, Section, Hernia Repair, Tonsillectomy, Tubal Ligation Additional Past Surgical History / Comment(s): cleft foot Past Anesthesia/Blood Transfusion Reactions: No Reported Reaction Past Psychological History: ADD/ADHD, Anxiety, Depression, PTSD Smoking Status: Current every day smoker Past Alcohol Use History: None Reported Past Drug Use History: Methamphetamine - Past Family History Mother Family Medical History: COPD, Osteoarthritis (OA) Father Family Medical History: No Reported History General Exam Limitations: no limitations General appearance: alert, in no apparent distress, anxious Head exam: Present: atraumatic, normocephalic Eye exam: Present: normal appearance. Absent: scleral icterus, conjunctival injection ENT exam: Present: normal oropharynx Neck exam: Present: normal inspection, full ROM Respiratory exam: Present: normal lung sounds bilaterally. Absent: respiratory distress, wheezes, rales, rhonchi, stridor Cardiovascular Exam: Present: normal rhythm, tachycardia, normal heart sounds. Absent: systolic murmur, diastolic murmur, rubs, gallop GI/Abdominal exam: Present: soft. Absent: distended, tenderness, guarding, rebound, rigid Extremities exam: Present: normal inspection, normal capillary refill. Absent: pedal edema, calf tenderness Back exam: Present: normal inspection. Absent: CVA tenderness (R), CVA tenderness (L) Neurological exam: Present: alert Skin exam: Present: warm, dry, intact, normal color, other (Patient has diffuse folliculitis, multiple erythematous papular lesions. A couple of these do have a pustular appearance. None has any palpable depth or appear to have advanced to abscess.) Course Vital Signs 12/13/17 12/13/17 05:16 07:59 Temperature 97.2 F L 98 F Pulse Rate 119 H 74 Respiratory 20 16 Rate Blood Pressure 130/83 120/70 O2 Sat by Pulse 100 98 Oximetry Medical Decision Making - Medical Decision Making Patient is 27-year-old woman with folliculitis. Discussed appropriate further care and follow-up as well as return parameters. - Lab Data Result diagrams: 12/13/17 05:58 12/13/17 05:58 Lab Results 02/09/18 02/09/18 02/09/18 Range/Units 05:58 05:58 05:58 WBC (3.8-10.6) k/uL RBC (3.80-5.40) m/uL Hgb (11.4-16.0) gm/dL Hct (34.0-46.0) % MCV (80.0-100.0) fL MCH (25.0-35.0) pg MCHC (31.0-37.0) g/dL RDW (11.5-15.5) % Plt Count (150-450) k/uL Neutrophils % % Lymphocytes % % Monocytes % % Eosinophils % % Basophils % % Neutrophils # (1.3-7.7) k/uL Lymphocytes # (1.0-4.8) k/uL Monocytes # (0-1.0) k/uL Eosinophils # (0-0.7) k/uL Basophils # (0-0.2) k/uL Sodium 143 (137-145) mmol/L Potassium 3.5 (3.5-5.1) mmol/L Chloride 104 (98-107) mmol/L Carbon Dioxide 28 (22-30) mmol/L Anion Gap 11 mmol/L BUN 13 (7-17) mg/dL Creatinine 0.64 (0.52-1.04) mg/dL Est GFR (MDRD) Af Amer >60 (>60 ml/min/1.73 sqM) Est GFR (MDRD) Non-Af >60 (>60 ml/min/1.73 sqM) Glucose 94 (74-99) mg/dL Calcium 9.4 (8.4-10.2) mg/dL Urine Color Yellow Urine Appearance Cloudy H (Clear) Urine pH 6.5 (5.0-8.0) Ur Specific [place] 1.025 (1.001-1.035) Urine Protein 1+ H (Negative) Urine Glucose (UA) Negative (Negative) Urine Ketones Negative (Negative) Urine Blood Negative (Negative) Urine Nitrite Negative (Negative) Urine Bilirubin Negative (Negative) Urine Urobilinogen 4.0 (<2.0) mg/dL Ur Leukocyte Esterase Moderate H (Negative) Urine RBC 3 (0-5) /hpf Urine WBC 25 H (0-5) /hpf Ur Squamous Epith Cells 92 H (0-4) /hpf Urine Bacteria Many H (None) /hpf Urine Mucus Many H (None) /hpf Urine HCG, Qual Not Detected (Not Detectd) Chlamydia Source Chlamydia DNA (PCR) (Neg,Equiv) N. gonorrhoeae Source N.gonorrhoeae DNA Probe (Neg,Equiv) 12/13/17 12/13/17 Range/Units 05:58 05:58 WBC 14.3 H (3.8-10.6) k/uL RBC 4.68 (3.80-5.40) m/uL Hgb 13.6 (11.4-16.0) gm/dL Hct 42.0 (34.0-46.0) % MCV 89.6 (80.0-100.0) fL MCH 28.9 (25.0-35.0) pg MCHC 32.3 (31.0-37.0) g/dL RDW 13.6 (11.5-15.5) % Plt Count 312 (150-450) k/uL Neutrophils % 80 % Lymphocytes % 15 % Monocytes % 3 % Eosinophils % 1 % Basophils % 0 % Neutrophils # 11.4 H (1.3-7.7) k/uL Lymphocytes # 2.2 (1.0-4.8) k/uL Monocytes # 0.4 (0-1.0) k/uL Eosinophils # 0.2 (0-0.7) k/uL Basophils # 0.0 (0-0.2) k/uL Sodium (137-145) mmol/L Potassium (3.5-5.1) mmol/L Chloride (98-107) mmol/L Carbon Dioxide (22-30) mmol/L Anion Gap mmol/L BUN (7-17) mg/dL Creatinine (0.52-1.04) mg/dL Est GFR (MDRD) Af Amer (>60 ml/min/1.73 sqM) Est GFR (MDRD) Non-Af (>60 ml/min/1.73 sqM) Glucose (74-99) mg/dL Calcium (8.4-10.2) mg/dL Urine Color Urine Appearance (Clear) Urine pH (5.0-8.0) Ur Specific [place] (1.001-1.035) Urine Protein (Negative) Urine Glucose (UA) (Negative) Urine Ketones (Negative) Urine Blood (Negative) Urine Nitrite (Negative) Urine Bilirubin (Negative) Urine Urobilinogen (<2.0) mg/dL Ur Leukocyte Esterase (Negative) Urine RBC (0-5) /hpf Urine WBC (0-5) /hpf Ur Squamous Epith Cells (0-4) /hpf Urine Bacteria (None) /hpf Urine Mucus (None) /hpf Urine HCG, Qual (Not Detectd) Chlamydia Source Urine Chlamydia DNA (PCR) Negative (Neg,Equiv) N. gonorrhoeae Source Urine N.gonorrhoeae DNA Probe Negative (Neg,Equiv) Disposition Clinical Impression: Folliculitis Disposition: HOME SELF-CARE Condition: Fair Instructions: Folliculitis (ED) Prescriptions: Mupirocin 2% Oint [Bactroban 2% Oint] 1 applic TOPICAL TID #15 gm Sulfamethox-Tmp 800-160Mg [Bactrim Ds] 2 each PO Q12HR #28 tab Referrals: None,Stated [Primary Care Provider] - 1-2 days
[2017-12-13 08:00] VITALS: BP 120/70; PULSE 74; RESP 16; TEMP 98
[2017-12-15 15:17] LABS: C. trachomatis,PCR Negative (Neg,Equiv); Chlamydia trachomatis Source Urine; N. gonorrhoeae,PCR Negative (Neg,Equiv); Neisseria Source Urine
== END 2017-12-13 07:59 | disposition home or self-care (01) ==
LOC: EC 05:13
DX: L73.9 Follicular disorder, unspecified (principal); R00.0 Tachycardia, unspecified; F15.90 Other stimulant use, unspecified, uncomplicated; F17.200 Nicotine dependence, unspecified, uncomplicated; Z88.0 Allergy status to penicillin; Z88.5 Allergy status to narcotic agent
CPT/HCPCS: 36415; 80048; 81001; 81025; 85025; 87491; 87591; 99283

== ENCOUNTER 2018-04-07 21:20 | Emergency (ER) | payer OTHER ==
[2018-04-07 21:42] VITALS: BP 122/79; PULSE 107; RESP 18; TEMP 98.1
[2018-04-07] MEDS ORDERED: HYDROcodone/APAP 5-325MG 1 EACH TAB PO STA (22:58)
[2018-04-07] MEDS ORDERED: AZITHROMYCIN 500 MG TAB PO STA (23:00)
[2018-04-07] MEDS ORDERED: metroNIDAZOLE 500 MG TAB PO STA (23:00)
[2018-04-07] MEDS ORDERED: ONDANSETRON 4 MG ODT STARTER PACK 2 TAB BTL PO STA (23:00)
[2018-04-07] MEDS ORDERED: cefTRIAXone 250 MG VIAL IM STA (23:00)
[2018-04-07 23:57] LABS: Appearance,Urine Clear (Clear); Bacteria,Urine Rare /hpf; Bilirubin,Urine Negative (Negative); Blood,Urine Negative (Negative); Color,Urine Yellow; Glucose,Urine (UA) Negative (Negative); Ketones,Urine Trace (Negative); Leukocyte Esterase,Urine Small (Negative); Mucus,Urine Many /hpf; Nitrite,Urine Negative (Negative); Protein,Urine 1+ (Negative); RBC,Urine 1 /hpf (0-5); Specific Gravity,Urine 1.036 (1.001-1.035); Squamous Epithelial Cell,Urine 8 /hpf (0-4); WBC,Urine 8 /hpf (0-5)
--- NOTE | 2018-04-08 00:08 | ED ---
Female Urogenital HPI - General Chief complaint: Urogenital Stated complaint: Female Time Seen by Provider: 04/07/18 21:58 Source: patient, RN notes reviewed, old records reviewed Mode of arrival: ambulatory Limitations: no limitations - History of Present Illness Initial comments: This patient is a 27 year old female with CC of vaginal swelling and lesions for 3 days. Patient reports that she noted some bleeding from lesions. She states that she has not had this before. Patient reports she is concerned for STD. Patient reports that she has had no fevers, chills, dysuria, or abdominal pain. - Related Data Home Medications Medication Instructions Recorded Confirmed Acetaminophen Tab [Tylenol Tab] 650 mg PO Q6H PRN 04/07/18 04/07/18 Previous Rx's Medication Instructions Recorded Acyclovir 400 mg PO TID 7 Days 04/08/18 HYDROcodone/APAP 5-325MG [[place] 1 tab PO Q6HR PRN #6 tab 04/08/18 5-325] Allergies Allergy/AdvReac Type Severity Reaction Status Date / Time Penicillins Allergy Severe Dyspnea Verified 04/07/18 22:09 codeine AdvReac Nausea & Verified 04/07/18 22:09 [From Tylenol-Codeine #3] Vomiting tramadol AdvReac Nausea & Verified 04/07/18 22:09 Vomiting Review of Systems ROS Statement: Those systems with pertinent positive or pertinent negative responses have been documented in the HPI. ROS Other: All systems not noted in ROS Statement are negative. Past Medical History Past Medical History: Pneumonia, Seizure Disorder History of Any Multi-Drug Resistant Organisms: None Reported Past Surgical History: Adenoidectomy, Section, Hernia Repair, Tonsillectomy, Tubal Ligation Additional Past Surgical History / Comment(s): cleft foot Past Anesthesia/Blood Transfusion Reactions: No Reported Reaction Past Psychological History: ADD/ADHD, Anxiety, Depression, PTSD Smoking Status: Current every day smoker Past Alcohol Use History: None Reported Past Drug Use History: Methamphetamine - Past Family History Mother Family Medical History: COPD, Osteoarthritis (OA) Father Family Medical History: No Reported History General Exam - General Exam Comments Initial Comments: 27 female with no acute distress. Limitations: no limitations General appearance: alert, in no apparent distress Head exam: Present: atraumatic, normocephalic, normal inspection Eye exam: Present: normal appearance, PERRL, EOMI. Absent: scleral icterus, conjunctival injection, periorbital swelling ENT exam: Present: normal exam, mucous membranes moist Neck exam: Present: normal inspection. Absent: tenderness, meningismus, lymphadenopathy Respiratory exam: Present: normal lung sounds bilaterally. Absent: respiratory distress, wheezes, rales, rhonchi, stridor Cardiovascular Exam: Present: regular rate, normal rhythm, normal heart sounds. Absent: systolic murmur, diastolic murmur, rubs, gallop, clicks GI/Abdominal exam: Present: soft, normal bowel sounds. Absent: distended, tenderness, guarding, rebound, rigid External exam: Present: erythema (erythematous lesions voer labia majora). Absent: normal external exam Speculum exam: Present: vaginal discharge. Absent: normal speculum exam By manual exam: Present: normal by manual exam, adnexal mass. Absent: cervical motion tenderness, adnexal tenderness Extremities exam: Present: normal inspection, full ROM, normal capillary refill. Absent: tenderness, pedal edema, joint swelling, calf tenderness Back exam: Present: normal inspection Neurological exam: Present: alert, oriented X3, CN II-XII intact Psychiatric exam: Present: normal affect, normal mood Course Vital Signs 04/07/18 21:39 Temperature 98.1 F Pulse Rate 107 H Respiratory 18 Rate Blood Pressure 122/79 O2 Sat by Pulse 100 Oximetry Medical Decision Making - Medical Decision Making Patient is a 27 year old female with lesions over labia, and concern for STD. Pelvic exam completed with copious vaginal discharge. 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 Patient states she wants to be treated for other STD such as gonorrhea and chlamydia. Patient given IM rocephin, Azithromycin, and flagyl in ED. Also started on Acyclovir for HSV. Discussed to inform sexual partners and follow up with PCP. REturn parameters discussed. - Lab Data Lab Results 04/07/18 04/07/18 04/08/18 Range/Units 23:30 23:30 00:25 Urine Color Yellow Urine Appearance Clear (Clear) Urine pH 6.0 (5.0-8.0) Ur Specific [place] 1.036 H (1.001-1.035) Urine Protein 1+ H (Negative) Urine Glucose (UA) Negative (Negative) Urine Ketones Trace H (Negative) Urine Blood Negative (Negative) Urine Nitrite Negative (Negative) Urine Bilirubin Negative (Negative) Urine Urobilinogen 2.0 (<2.0) mg/dL Ur Leukocyte Esterase Small H (Negative) Urine RBC 1 (0-5) /hpf Urine WBC 8 H (0-5) /hpf Ur Squamous Epith Cells 8 H (0-4) /hpf Urine Bacteria Rare H (None) /hpf Urine Mucus Many H (None) /hpf Urine HCG, Qual Not Detected (Not Detectd) Chlamydia Source Cervix Chlamydia DNA (PCR) Negative (Neg,Equiv) N. gonorrhoeae Source N.gonorrhoeae DNA Probe (Neg,Equiv) Trichomonas Ag (Rapid) (Negative) 04/08/18 04/08/18 Range/Units 00:25 00:25 Urine Color Urine Appearance (Clear) Urine pH (5.0-8.0) Ur Specific [place] (1.001-1.035) Urine Protein (Negative) Urine Glucose (UA) (Negative) Urine Ketones (Negative) Urine Blood (Negative) Urine Nitrite (Negative) Urine Bilirubin (Negative) Urine Urobilinogen (<2.0) mg/dL Ur Leukocyte Esterase (Negative) Urine RBC (0-5) /hpf Urine WBC (0-5) /hpf Ur Squamous Epith Cells (0-4) /hpf Urine Bacteria (None) /hpf Urine Mucus (None) /hpf Urine HCG, Qual (Not Detectd) Chlamydia Source Chlamydia DNA (PCR) (Neg,Equiv) N. gonorrhoeae Source Cervix N.gonorrhoeae DNA Probe Negative (Neg,Equiv) Trichomonas Ag (Rapid) Negative (Negative) Disposition Clinical Impression: Herpes genitalia, STD (female) Disposition: HOME SELF-CARE Condition: Good Instructions: Genital Herpes Simplex (ED) Additional Instructions: Patient has follow-up with primary care physician. Take the medication as prescribed. Return to the emergency department if any alarming signs or symptoms occur. Prescriptions: Acyclovir 400 mg PO TID 7 Days HYDROcodone/APAP 5-325MG [[place] 5-325] 1 tab PO Q6HR PRN #6 tab PRN Reason: Pain Is patient prescribed a controlled substance at d/c from ED?: Yes When asked, does pt state using other controlled substances?: No If prescribed controlled substance>3 days was MAPS reviewed?: Prescribed <3 Days If opioid is for acute pain is fill amount 7 days or less?: Yes If Rx opioid, was Start Talking consent form obtained?: Yes Referrals: None,Stated [Primary Care Provider] - 1-2 days Frank Tristan MD [STAFF PHYSICIAN] - 1-2 days Time of Disposition: 00:07
[2018-04-09 15:14] LABS: C. trachomatis,PCR Negative (Neg,Equiv); Chlamydia trachomatis Source Cervix
[2018-04-09 15:24] LABS: N. gonorrhoeae,PCR Negative (Neg,Equiv); Neisseria Source Cervix
== END 2018-04-08 00:30 | disposition home or self-care (01) ==
LOC: EC 21:20
DX: A60.04 Herpesviral vulvovaginitis (principal); F17.200 Nicotine dependence, unspecified, uncomplicated; Z88.0 Allergy status to penicillin; Z88.5 Allergy status to narcotic agent
CPT/HCPCS: 99284; 96372; 81001; 81025; 87808; 87491; 87591; 87070; 87086; J0696; S0119; 87205

== ENCOUNTER 2018-10-19 23:16 | Emergency (ER) | payer OTHER ==
[2018-10-19 23:26] VITALS: TEMP 98.5
[2018-10-19] MEDS ORDERED: diphenhydrAMINE 50 MG/ML 1 ML VIAL IM STA (23:44)
[2018-10-19] MEDS ORDERED: LORazepam 2 MG/ML INJ IM STA (23:44)
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
[2018-10-20 00:29] VITALS: BP 117/59; PULSE 98; RESP 18
== END 2018-10-20 00:29 | disposition home or self-care (01) ==
LOC: EC 23:16
DX: F41.9 Anxiety disorder, unspecified (principal); R06.4 Hyperventilation; F44.9 Dissociative and conversion disorder, unspecified; F17.200 Nicotine dependence, unspecified, uncomplicated; Z88.0 Allergy status to penicillin; Z88.5 Allergy status to narcotic agent
CPT/HCPCS: 99283; 96372 ×2; J2060; J1200

== ENCOUNTER 2018-12-25 09:01 | Emergency (ER) | payer OTHER ==
[2018-12-25 09:06] VITALS: BP 110/77; PULSE 94; RESP 18; TEMP 97.8
[2018-12-25] MEDS ORDERED: KETOROLAC 30 MG/ML 1 ML VIAL IVP STA (09:12)
[2018-12-25] MEDS ORDERED: SODIUM CHLORIDE 0.9% 1,000 ML IV STA (09:12)
[2018-12-25] MEDS ORDERED: ONDANSETRON 4 MG/2 ML VIAL IVP STA (09:12)
[2018-12-25] MEDS ORDERED: MORPHINE SULFATE 4 MG/ML SYRINGE IV STA (09:12)
--- NOTE | 2018-12-25 09:43 | ED ---
Abdominal Pain HPI - General Chief Complaint: Abdominal Pain Stated Complaint: Female Time Seen by Provider: 12/25/18 09:08 Source: patient, RN notes reviewed Mode of arrival: ambulatory Limitations: no limitations - History of Present Illness Initial Comments: 28-year-old female presents emergency Department with chief complaint of right lower quadrant abdominal pain. Patient states that she had some back pain yesterday but states this pain started this morning. Patient states it severe. Patient is concerned she may have an ectopic she's had prior tubal ligation. Patient states that she had one last year in [place]. Patient's is A1. Patient states that she does not believe she is this time though. Patient denies any vaginal bleeding or vaginal discharge. Patient denies any dysuria, hematuria. No history kidney stones. She does feel slightly nausea no vomiting. Denies any fevers or chills. - Related Data Home Medications Medication Instructions Recorded Confirmed No Known Home Medications 12/25/18 12/25/18 Allergies Allergy/AdvReac Type Severity Reaction Status Date / Time Penicillins Allergy Severe Dyspnea Verified 12/25/18 09:32 codeine AdvReac Nausea & Verified 12/25/18 09:32 [From Tylenol-Codeine #3] Vomiting tramadol AdvReac Nausea & Verified 12/25/18 09:32 Vomiting Review of Systems ROS Statement: Those systems with pertinent positive or pertinent negative responses have been documented in the HPI. ROS Other: All systems not noted in ROS Statement are negative. 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 Absent: scleral icterus, conjunctival injection, periorbital swelling ENT exam: Present: normal exam, normal oropharynx, mucous membranes moist Neck exam: Present: normal inspection. Absent: tenderness, meningismus, lymphadenopathy Respiratory exam: Present: normal lung sounds bilaterally. Absent: respiratory distress, wheezes, rales, rhonchi, stridor Cardiovascular Exam: Present: regular rate, normal rhythm, normal heart sounds. Absent: systolic murmur, diastolic murmur, rubs, gallop, clicks GI/Abdominal exam: Present: soft, tenderness (Moderate right lower quadrant), normal bowel sounds. Absent: distended, guarding, rebound, rigid Back exam: Present: CVA tenderness (R). Absent: CVA tenderness (L) Skin exam: Present: warm, dry, intact, normal color. Absent: rash Course Vital Signs 12/25/18 09:02 Temperature 97.8 F Pulse Rate 94 Respiratory 18 Rate Blood Pressure 110/77 O2 Sat by Pulse 100 Oximetry Medical Decision Making - Medical Decision Making 28 year old Female presented emergency from for abdominal pain. Patient had lab work and ultrasound initially to rule out ectopic or torsion. Ultrasound was negative. CT was ordered and which I do not have the results at this time. Patient is requesting be discharged because she is arguing with her significant other. Patient will follow-up on her the results. - Lab Data Result diagrams: 12/25/18 09:35 12/25/18 09:35 Lab Results 12/25/18 12/25/18 12/25/18 Range/Units 09:35 09:35 09:35 WBC 5.6 (3.8-10.6) k/uL RBC 4.64 (3.80-5.40) m/uL Hgb 12.3 (11.4-16.0) gm/dL Hct 37.7 (34.0-46.0) % MCV 81.2 (80.0-100.0) fL MCH 26.6 (25.0-35.0) pg MCHC 32.7 (31.0-37.0) g/dL RDW 14.8 (11.5-15.5) % Plt Count 201 (150-450) k/uL Neutrophils % 47 % Lymphocytes % 34 % Monocytes % 13 % Eosinophils % 5 % Basophils % 0 % Neutrophils # 2.6 (1.3-7.7) k/uL Lymphocytes # 1.9 (1.0-4.8) k/uL Monocytes # 0.7 (0-1.0) k/uL Eosinophils # 0.3 (0-0.7) k/uL Basophils # 0.0 (0-0.2) k/uL Sodium 140 (137-145) mmol/L Potassium 4.3 (3.5-5.1) mmol/L Chloride 108 H (98-107) mmol/L Carbon Dioxide 25 (22-30) mmol/L Anion Gap 7 mmol/L BUN 14 (7-17) mg/dL Creatinine 0.62 (0.52-1.04) mg/dL Est GFR (CKD-EPI)AfAm >90 (>60 ml/min/1.73 sqM) Est GFR (CKD-EPI)NonAf >90 (>60 ml/min/1.73 sqM) Glucose 81 (74-99) mg/dL Calcium 8.9 (8.4-10.2) mg/dL Total Bilirubin 0.2 (0.2-1.3) mg/dL AST 50 H (14-36) U/L ALT 70 H (9-52) U/L Alkaline Phosphatase 105 (38-126) U/L Total Protein 6.5 (6.3-8.2) g/dL Albumin 3.9 (3.5-5.0) g/dL Amylase <30 L (30-110) U/L Lipase 92 (23-300) U/L Urine Color Yellow Urine Appearance Cloudy H (Clear) Urine pH 5.5 (5.0-8.0) Ur Specific [place] 1.017 (1.001-1.035) Urine Protein Negative (Negative) Urine Glucose (UA) Negative (Negative) Urine Ketones Negative (Negative) Urine Blood Trace H (Negative) Urine Nitrite Negative (Negative) Urine Bilirubin Negative (Negative) Urine Urobilinogen <2.0 (<2.0) mg/dL Ur Leukocyte Esterase Moderate H (Negative) Urine RBC 3 (0-5) /hpf Urine WBC 6 H (0-5) /hpf Ur Squamous Epith Cells 15 H (0-4) /hpf Urine Mucus Few H (None) /hpf Urine HCG, Qual (Not Detectd) 12/25/18 Range/Units 09:35 WBC (3.8-10.6) k/uL RBC (3.80-5.40) m/uL Hgb (11.4-16.0) gm/dL Hct (34.0-46.0) % MCV (80.0-100.0) fL MCH (25.0-35.0) pg MCHC (31.0-37.0) g/dL RDW (11.5-15.5) % Plt Count (150-450) k/uL Neutrophils % % Lymphocytes % % Monocytes % % Eosinophils % % Basophils % % Neutrophils # (1.3-7.7) k/uL Lymphocytes # (1.0-4.8) k/uL Monocytes # (0-1.0) k/uL Eosinophils # (0-0.7) k/uL Basophils # (0-0.2) k/uL Sodium (137-145) mmol/L Potassium (3.5-5.1) mmol/L Chloride (98-107) mmol/L Carbon Dioxide (22-30) mmol/L Anion Gap mmol/L BUN (7-17) mg/dL Creatinine (0.52-1.04) mg/dL Est GFR (CKD-EPI)AfAm (>60 ml/min/1.73 sqM) Est GFR (CKD-EPI)NonAf (>60 ml/min/1.73 sqM) Glucose (74-99) mg/dL Calcium (8.4-10.2) mg/dL Total Bilirubin (0.2-1.3) mg/dL AST (14-36) U/L ALT (9-52) U/L Alkaline Phosphatase (38-126) U/L Total Protein (6.3-8.2) g/dL Albumin (3.5-5.0) g/dL Amylase (30-110) U/L Lipase (23-300) U/L Urine Color Urine Appearance (Clear) Urine pH (5.0-8.0) Ur Specific [place] (1.001-1.035) Urine Protein (Negative) Urine Glucose (UA) (Negative) Urine Ketones (Negative) Urine Blood (Negative) Urine Nitrite (Negative) Urine Bilirubin (Negative) Urine Urobilinogen (<2.0) mg/dL Ur Leukocyte Esterase (Negative) Urine RBC (0-5) /hpf Urine WBC (0-5) /hpf Ur Squamous Epith Cells (0-4) /hpf Urine Mucus (None) /hpf Urine HCG, Qual Not Detected (Not Detectd) Disposition Clinical Impression: Abdominal pain Disposition: Left Against Medical Advice Referrals: None,Stated [Primary Care Provider] - 1-2 days
[2018-12-25 09:53] LABS: Basophils % (A) 0 %; Eosinophils # (A) 0.3 k/uL (0-0.7); Eosinophils % (A) 5 %; HCT 37.7 % (34.0-46.0); HGB 12.3 gm/dL (11.4-16.0); Lymphocytes # (A) 1.9 k/uL (1.0-4.8); Lymphocytes % (A) 34 %; MCH 26.6 pg (25.0-35.0); MCHC 32.7 g/dL (31.0-37.0); MCV 81.2 fL (80.0-100.0); Mean Platelet Volume 7.5; Monocytes # (A) 0.7 k/uL (0-1.0); Monocytes % (A) 13 %; Neutrophils # (A) 2.6 k/uL (1.3-7.7); Neutrophils % (A) 47 %; Platelet Count 201 k/uL (150-450); RBC 4.64 m/uL (3.80-5.40); RDW 14.8 % (11.5-15.5); WBC 5.6 k/uL (3.8-10.6)
[2018-12-25 10:04] LABS: ALT 70 U/L (9-52); AST 50 U/L (14-36); Albumin 3.9 g/dL (3.5-5.0); Alkaline Phosphatase 105 U/L (38-126); Amylase <30 U/L (30-110); Anion Gap 7 mmol/L; Blood Urea Nitrogen 14 mg/dL (7-17); Calcium 8.9 mg/dL (8.4-10.2); Carbon Dioxide 25 mmol/L (22-30); Chloride 108 mmol/L (98-107); Glucose 81 mg/dL (74-99); Lipase 92 U/L (23-300); Potassium 4.3 mmol/L (3.5-5.1); Sodium 140 mmol/L (137-145); Total Bilirubin 0.2 mg/dL (0.2-1.3); Total Protein 6.5 g/dL (6.3-8.2)
[2018-12-25 10:25] LABS: Appearance,Urine Cloudy (Clear); Bilirubin,Urine Negative (Negative); Blood,Urine Trace (Negative); Color,Urine Yellow; Glucose,Urine (UA) Negative (Negative); Ketones,Urine Negative (Negative); Leukocyte Esterase,Urine Moderate (Negative); Mucus,Urine Few /hpf; Nitrite,Urine Negative (Negative); PH, Urine 5.5 (5.0-8.0); Protein,Urine Negative (Negative); RBC,Urine 3 /hpf (0-5); Specific Gravity,Urine 1.017 (1.001-1.035); Squamous Epithelial Cell,Urine 15 /hpf (0-4); Urobilinogen,Urine <2.0 mg/dL (<2.0); WBC,Urine 6 /hpf (0-5)
--- NOTE | 2018-12-25 10:56 | US ---
EXAMINATION TYPE: US transvaginal plus Dopplers DATE OF EXAM: 12/25/2018 COMPARISON: NONE CLINICAL HISTORY: 28-year-old female right side pain. TECHNIQUE: Transabdominal sonographic images of the pelvis were acquired. Transvaginal sonographic i mages were medically necessary to better assess the anatomy. Color Doppler and spectral waveform anal ysis of the ovarian arteries and veins. Date of LMP: 12/17/18 FINDINGS: EXAM MEASUREMENTS: Uterus: 10.6 x 4.3 x 5.9 cm Endometrial Stripe: 1.2 cm Right Ovary: 2.8 x 1.7 x 4.4 cm Left Ovary: Obscured by overlying bowel gas 1. Uterus: Anteverted, 9 mm cervical nabothian cyst filled with debris. 2. Endometrium: mild fluid in endocervical canal, endometrium is thick for the point in the patient's menstrual cycle. 3. Right Ovary: wnl 4. Left Ovary: Obscured by overlying bowel gas Spectral, color and waveform doppler imaging shows good arterial and venous flow within the right o vary there is no evidence for ovarian torsion on right. 5. Bilateral Adnexa: wnl 6. Posterior cul-de-sac: small amount of ff IMPRESSION: 1. Left ovary obscured by bowel gas. 2. Normal follicular change in the right ovary. No evidence for right ovarian torsion. 3. Thickened endometrium at 1.2 cm, somewhat unexpected for the time of the patient's menstrual cycle . Some fluid is also present in the endocervical canal. Correlate for possible impending menses. Patricia elation can also be performed with status. 4. A 9 mm debris-filled cervical nabothian cyst. 5. Small amount of cul-de-sac free fluid.
--- NOTE | 2018-12-25 12:09 | CT ---
EXAMINATION TYPE: CT abdomen pelvis w con DATE OF EXAM: 12/25/2018 COMPARISON: 08/26/2017 HISTORY: generalized pain with nausea CT DLP: 584.8 mGycm CONTRAST: CT scan of the abdomen and pelvis is performed without Oral Contrast and with IV Contrast, patient in jected with 100 mL of Isovue 300. FINDINGS: LUNG BASES-: No visible nodule. No infiltrate. LIVER/GB: No calcified gallstones. No space occupying hepatic lesion. Biliary tree is of normal ca liber. PANCREAS: No inflammation. No distinct mass. SPLEEN: No splenic enlargement. No lesion seen. ADRENALS: No nodule. No thickening. KIDNEYS/BLADDER: No hydronephrosis. No nephrolithiasis. No distinct renal mass. Urinary bladder g rossly unremarkable. BOWEL: Normal appendix. Normal bowel caliber. No inflammation. GENITAL ORGANS: Nonspecific 2.6 cm cyst left ovary. This could be further evaluated with ultrasound. Right-sided tubal ligation change. Uterus is unremarkable. Trace free fluid within the cul-de-sac. LYMPH NODES: No greater than 1cm abdominal or pelvic lymph nodes are appreciated. AORTA: No significant abnormality. OSSEOUS STRUCTURES: No significant abnormality is seen. OTHER: No significant additional abnormality is seen. IMPRESSION: 1. Nonspecific left ovarian cystic lesion. Trace free fluid within the cul-de-sac. Otherwise unremark able study.
== END 2018-12-25 12:04 | disposition left against medical advice (07) ==
LOC: EC 09:01
DX: R10.31 Right lower quadrant pain (principal); M54.9 Dorsalgia, unspecified; R11.0 Nausea; F17.200 Nicotine dependence, unspecified, uncomplicated; Z88.5 Allergy status to narcotic agent; Z88.6 Allergy status to analgesic agent; Z88.0 Allergy status to penicillin; Z98.51 Tubal ligation status
CPT/HCPCS: 36415; 80053; 82150; 83690; 85025; 81001; 81025; 93976; 76830; 74177; 99284; 96374; 96375 ×2; 96361; J2270; J2405; J1885; Q9967

== ENCOUNTER 2019-10-26 12:16 | Emergency (ER) | payer OTHER | END 2019-10-26 12:18 | disposition left against medical advice (07) | LOC: EC 12:16 | DX: K08.89 Other specified disorders of teeth and supporting structures (principal) | CPT/HCPCS: 99499 ==

== ENCOUNTER 2021-03-04 18:48 | Emergency (ER) | payer OTHER ==
[2021-03-04 18:59] VITALS: BP 120/74; PULSE 62; RESP 22; TEMP 97.8
[2021-03-04] MEDS ORDERED: CLINDAMYCIN 150 MG CAP PO STA (19:06)
--- NOTE | 2021-03-04 19:08 | ED ---
General Adult HPI - General Chief complaint: Dental/Oral Stated complaint: Dental Issue Time Seen by Provider: 03/04/21 19:02 Source: patient Mode of arrival: ambulatory Limitations: no limitations - History of Present Illness Initial comments: 30 year-old female patient presents to the emergency department today for evaluation of left lower dental pain. States that the area started to get sore a couple of days ago and today developed a "pus pocket" over the gum. States that she is able to squeeze out white drainage, but the swelling comes back. She has been taking ibuprofen. She is requesting antibiotics. Has a dentist appointment on 03/29/21. Denies any fever or chills. Denies nausea or vomiting. Denies any trismus or difficulty swallowing. Denies chance of . - Related Data Previous Rx's Medication Instructions Recorded Clindamycin [Cleocin] 450 mg PO Q6H #120 cap 03/04/21 Allergies Allergy/AdvReac Type Severity Reaction Status Date / Time Penicillins Allergy Severe Dyspnea Verified 03/04/21 18:59 codeine AdvReac Nausea & Verified 03/04/21 18:59 [From Tylenol-Codeine #3] Vomiting tramadol AdvReac Nausea & Verified 03/04/21 18:59 Vomiting Review of Systems ROS Statement: Those systems with pertinent positive or pertinent negative responses have been documented in the HPI. ROS Other: All systems not noted in ROS Statement are negative. Past Medical History Past Medical History: Pneumonia, Seizure Disorder History of Any Multi-Drug Resistant Organisms: None Reported Past Surgical History: Adenoidectomy, Section, Hernia Repair, Tonsillectomy, Tubal Ligation Additional Past Surgical History / Comment(s): cleft foot Past Anesthesia/Blood Transfusion Reactions: No Reported Reaction Past Psychological History: ADD/ADHD, Anxiety, Depression, PTSD Smoking Status: Never smoker Past Alcohol Use History: None Reported Past Drug Use History: Methamphetamine - Past Family History Mother Family Medical History: COPD, Osteoarthritis (OA) Father Family Medical History: No Reported History General Exam Limitations: no limitations General appearance: alert, in no apparent distress, other (This is a well- developed, well-nourished adult female patient in no acute distress. Vital signs upon presentation are temperature 97.8F, pulse 62, respirations 22, blood pressure 120/74, pulse ox 100% on room air.) Eye exam: Present: normal appearance, PERRL, EOMI. Absent: scleral icterus, conjunctival injection, periorbital swelling ENT exam: Present: normal oropharynx, mucous membranes moist, other (Fractured t ooth number #17, there is temporary filling. There is abscess noted just beneath the tooth on the bucchal gum surface. There is white drainage. ) Neck exam: Present: normal inspection. Absent: tenderness, meningismus, lymphadenopathy Respiratory exam: Present: normal lung sounds bilaterally. Absent: respiratory distress, wheezes, rales, rhonchi, stridor Cardiovascular Exam: Present: regular rate, normal rhythm, normal heart sounds. Absent: systolic murmur, diastolic murmur, rubs, gallop, clicks Neurological exam: Present: alert, oriented X3, CN II-XII intact Psychiatric exam: Present: normal affect, normal mood Skin exam: Present: warm, dry, intact, normal color. Absent: rash Course Vital Signs 03/04/21 18:57 Temperature 97.8 F Pulse Rate 62 Respiratory 22 Rate Blood Pressure 120/74 O2 Sat by Pulse 100 Oximetry Medical Decision Making - Medical Decision Making 30-year-old female patient presented to the emergency department today for evaluation of left lower dental pain and abscess. Physical examination did reveal fractured tooth #17 with temporary filling. There is abscess that is draining to the nuchal surface of the gum. She is afebrile normal vital signs. She is requesting antibiotics, declines pain medication. She is given clindamycin as she is ALLERGIC to penicillins. She'll be discharged to follow- up with dentistry as soon as possible. She does have a appointment on 03/29/2021. She is instructed to do primary care physician for recheck in 1-2 days. Return parameters were discussed in detail. She verbalizes understanding and agrees with this plan. My attending is Dr. Sullivan. Disposition Clinical Impression: Dental abscess Disposition: HOME SELF-CARE Condition: Good Instructions (If sedation given, give patient instructions): Dental Abscess (ED) Additional Instructions: Complete antibiotic prescription in full, even if you are feeling better. Follow up with the dentist as you have planned. Return to the emergency department for any new, worsening, or concerning symptoms. Prescriptions: Clindamycin [Cleocin] 450 mg PO Q6H #120 cap Is patient prescribed a controlled substance at d/c from ED?: No Referrals: Faustino Kyle MD [Primary Care Provider] - 1-2 days Time of Disposition: 19:07
== END 2021-03-04 19:16 | disposition home or self-care (01) ==
LOC: EC 18:48
DX: K04.7 Periapical abscess without sinus (principal); F32.9 Major depressive disorder, single episode, unspecified
CPT/HCPCS: 99283

== ENCOUNTER 2021-03-17 19:33 | Emergency (ER) | payer OTHER ==
[2021-03-17 19:51] VITALS: BP 119/78; TEMP 97.9
--- NOTE | 2021-03-17 19:59 | ED ---
SOB HPI - General Chief Complaint: Shortness of Breath Stated Complaint: COVID +, SOB Time Seen by Provider: 03/17/21 19:52 Source: patient Mode of arrival: ambulatory Limitations: no limitations - History of Present Illness Initial Comments: 30-year-old female presenting to the emergency department for chief complaint of dyspnea with covid + testing outpatient. Patient states that she tested positive today for COVID-19. Patient states that on Saturday she was also tested when her symptoms have begun Pitocin negative. Patient states she's had cough short of breath fevers body aches. Patient denies any chest pain, leg swelling, hemoptysis, pt denies smoking hx, hx of cancer, or exogenous hormone use.Pt states she was prescribed azithromycin and steroids by her PCP. patient has no additional complaints. Upon arrival she appears well nontoxic in no acute distress. 100% on RA, no tachycardia signs of respiratory distress clinically. - Related Data Home Medications Medication Instructions Recorded Confirmed Acyclovir 400 mg PO DAILY 03/17/21 03/17/21 Ibuprofen [Motrin] 600 mg PO Q8HR PRN 03/17/21 03/17/21 Minocycline HCl [Minocin] 100 mg PO BID 03/17/21 03/17/21 lamoTRIgine [LaMICtal] 25 mg PO DAILY 03/17/21 03/17/21 Previous Rx's Medication Instructions Recorded Albuterol Inhaler [Ventolin Hfa 1 puff INHALATION Q6H PRN 30 Days 03/17/21 Inhaler] #60 puff Allergies Allergy/AdvReac Type Severity Reaction Status Date / Time Penicillins Allergy Severe Dyspnea Verified 03/17/21 20:10 codeine AdvReac Nausea & Verified 03/17/21 20:10 [From Tylenol-Codeine #3] Vomiting tramadol AdvReac Nausea & Verified 03/17/21 20:10 Vomiting Review of Systems ROS Statement: Those systems with pertinent positive or pertinent negative responses have been documented in the HPI. ROS Other: All systems not noted in ROS Statement are negative. Past Medical History Past Medical History: Pneumonia History of Any Multi-Drug Resistant Organisms: None Reported Past Surgical History: Adenoidectomy, Section, Hernia Repair, Tonsillectomy, Tubal Ligation Additional Past Surgical History / Comment(s): cleft foot Past Anesthesia/Blood Transfusion Reactions: No Reported Reaction Past Psychological History: ADD/ADHD, Anxiety, Depression, PTSD Smoking Status: Never smoker Past Alcohol Use History: None Reported Past Drug Use History: Methamphetamine - Past Family History Mother Family Medical History: COPD, Osteoarthritis (OA) Father Family Medical History: No Reported History General Exam - General Exam Comments Initial Comments: General: The patient is awake and alert, in no distress Eye: Pupils are equal, round and reactive to light, extra-ocular movements are intact. No nystagmus. There is normal conjunctiva bilaterally. No signs of icterus. Ears, nose, mouth and throat: There are moist mucous membranes and no oral lesions. Neck: The neck is supple, there is no tenderness or JVD. Cardiovascular: There is a regular rate and rhythm. No murmur, rub or gallop is appreciated. Respiratory: Lungs are clear to auscultation, respirations are non-labored, breath sounds are equal. No wheezes, stridor, rales, or rhonchi. No retractions no abdominal breathing Musculoskeletal: Normal ROM, no tenderness. Strength 5/5. Sensation intact. Radial pulses equal bilaterally 2+. Neurological: A&O x 3. CN II-XII intact grossly, There are no obvious motor or sensory deficits. Coordination appears grossly intact. Speech is normal. Skin: Skin is warm and dry and no rashes or lesions are noted. No leg swelling or calf pain. no Edema noted. Psychiatric: Cooperative, appropriate mood & affect, normal judgment. Limitations: no limitations Course Vital Signs 03/17/21 19:49 Temperature 97.9 F Pulse Rate 89 Respiratory 18 Rate Blood Pressure 119/78 O2 Sat by Pulse 100 Oximetry Medical Decision Making - Medical Decision Making CXR clear. Lungs clear. PERC (-). Patient appears well nontoxic. pt main cc cough, mild dyspnea. burning with cough. no chest pain. pt is agreeable to home symptomatic treatment and return to ER for worsening symptoms. pt discharged appearing well. Disposition Clinical Impression: COVID-19, Cough, Dyspnea Disposition: HOME SELF-CARE Condition: Good Instructions (If sedation given, give patient instructions): Coronavirus Disease 2019 (COVID-19) Additional Instructions: Please use medication as discussed. Please follow-up with family doctor in the next 2 days. Please return to emergency room if the symptoms increase or worsen or for any other concerns. Prescriptions: Albuterol Inhaler [Ventolin Hfa Inhaler] 1 puff INHALATION Q6H PRN 30 Days #60 puff PRN Reason: Wheezing Is patient prescribed a controlled substance at d/c from ED?: No Referrals: Faustino Kyle MD [Primary Care Provider] - 1-2 days Time of Disposition: 20:16
--- NOTE | 2021-03-17 20:09 | XR ---
EXAMINATION TYPE: XR chest 2V DATE OF EXAM: 03/17/2021 COMPARISON: NONE HISTORY: Short of breath TECHNIQUE: 2 views FINDINGS: Heart and mediastinum are normal. Lungs are clear. Diaphragm is normal. Bony thorax appears normal. IMPRESSION: Normal chest.
[2021-03-17 20:40] VITALS: PULSE 80; RESP 20
== END 2021-03-17 20:40 | disposition home or self-care (01) ==
LOC: EC 19:33
DX: U07.1 COVID-19 (principal); F90.9 Attention-deficit hyperactivity disorder, unspecified type; F41.9 Anxiety disorder, unspecified; F32.9 Major depressive disorder, single episode, unspecified; F15.10 Other stimulant abuse, uncomplicated; Z79.899 Other long term (current) drug therapy; Z79.1 Long term (current) use of non-steroidal anti-inflammatories (NSAID); Z88.0 Allergy status to penicillin
CPT/HCPCS: 71046; 99284

== ENCOUNTER → 2023-10-05 | Outpatient (CLI) | payer OTHER ==
[2023-10-05 22:59] LABS: HCT 41.7 % (37.2-46.3); HGB 14.4 g/dL (12.0-15.0); MCH 30.1 pg (27.0-32.0); MCHC 34.5 g/dL (32.0-37.0); MCV 87.1 FL (80.0-97.0); Mean Platelet Volume 11.8 FL (9.5-12.2); NRBC Per 100 WBC 0 X 10*3/uL (0.00-0.01); Platelet Count 182 X 10*3/uL (140-440); RBC 4.79 X 10*6/uL (4.10-5.20); RDW 11.9 % (11.5-14.5); WBC 5.88 X 10*3/uL (4.50-10.00)
== END | disposition home or self-care (01) ==
LOC: LABWHC1 11:54
PROVIDERS: ATTEND Family Medicine
DX: F31.9 Bipolar disorder, unspecified (principal); G44.89 Other headache syndrome; E28.2 Polycystic ovarian syndrome
CPT/HCPCS: 36415; 82306; 82607; 82746; 83540; 84466; 85027